=== PATIENT | female | born 1990 | race American Indian/Alaskan Native ===

== ENCOUNTER 2017-04-30 13:44 | Inpatient (IN) | payer MEDICAID ==
[2017-04-30] MEDS ORDERED: ePHEDrine SULFATE IV PRN (13:59)
[2017-04-30] MEDS ORDERED: BRETHINE IVP PRN (13:59)
[2017-04-30] MEDS ORDERED: BRETHINE SUB-Q PRN (13:59)
[2017-04-30] MEDS ORDERED: MINERAL OIL PO PRN (13:59)
[2017-04-30] MEDS ORDERED: PITOCin/NS 20 UNIT/1000ML DRIP 20 UNITS/1,000 ML BAG IV SCH (14:00)
[2017-04-30] MEDS ORDERED: XYLOCAINE 2% INFILTRATI ONE (14:18)
[2017-04-30 14:50] LABS: Hematocrit 40.2 % (30.3-42.9); Hemoglobin 13.5 gm/dl (10.1-14.3); Mean Corpuscular HGB Conc 34 % (30-34); Platelet Count 223 K/mm3 (140-440); Red Blood Count 5.84 M/mm3 (3.65-5.03); Red Cell Distribution Width 14.1 % (13.2-15.2); White Blood Count 7.3 K/mm3 (4.5-11.0)
[2017-04-30 15:02] LABS: Mean Corpuscular Hemoglobin 23 pg (28-32); Mean Corpuscular Volume 69 fl (79-97)
--- NOTE | 2017-04-30 15:53 | History and Physical Report ---
History of Present Illness Date of examination: 04/30/17 Date of admission: 04/30/17 13:44 Chief complaint: Sent from the office for IOL due to nonreactive NST History of present illness: Here for IOL. She had a scheduled for IOL for postdates today but canceled because she did not want to be induced. She was seen at the clinic today for NST which was nonreactive. She report positive uterine contractions & movements. She denies vaginal bleeding. She has a h/o heart murmur. Care co- managed with [facility] Normal ECHO. Holter benign PVCs. She was given a prescription for Metoprolol 25mg PO BID which she never took due to concerns it might hurt the baby despite being told it was ok. Her is complicated by anemia and she is on iron therapy. She admits to marijuana use for management of nausea/vimiting this . 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) Family/Genetic History: none Social history: single - Obstetrical History Expected Date of Delivery: 04/21/17 Actual Gestation: 41 Week(s) 2 Day(s) : 1 Para: 0 Hx # Term Pregnancies: 0 Number of Pregnancies: 0 Spontaneous Abortions: 0 Induced : 0 Number of Living Children: 0 Medications and Allergies Allergies Allergy/AdvReac Type Severity Reaction Status Date / Time No Known Allergies Allergy Verified 03/13/15 23:46 Home Medications Medication Instructions Recorded Confirmed Last Taken Type Iron 1 tab PO QDAY 04/30/17 04/30/17 04/30/17 09:00 History 1 Vit No.129/Iron/Folic 1 tab PO QDAY 04/30/17 04/30/17 04/29/17 12:00 History [ One Daily Tablet] 1 Active Meds: Active Medications Butorphanol Tartrate (Stadol) 2 mg IV Q2H PRN PRN Reason: Pain , Severe (7-10) Ephedrine Sulfate (Ephedrine Sulfate) 10 mg IV Q2M PRN PRN Reason: Hypotension Lactated Ringer's (Lactated Ringers) 1,000 mls @ 125 mls/hr IV DIRECT SHELLY Oxytocin/Sodium Chloride (Pitocin/Ns 20 Unit/1000ml Drip) 20 units in 1,000 mls @ 125 mls/hr IV DIRECT SHELLY Oxytocin/Sodium Chloride (Pitocin/Ns 30 Unit/500ml) 30 units in 500 mls @ 0 mls /hr IV TITR SHELLY; Per Protocol PRN Reason: Protocol Oxytocin/Sodium Chloride (Pitocin/Ns 30 Unit/500ml) 30 units in 500 mls @ 1 mls /hr IV TITR SHELLY; 1 MILLIUNITS/MIN PRN Reason: Protocol Mineral Oil (Mineral Oil) 30 ml PO QHS PRN PRN Reason: Constipation Terbutaline Sulfate (Brethine) 0.25 mg SUB-Q ONCE PRN PRN Reason: Hyperstimulation/Hypertonicity Terbutaline Sulfate (Brethine) 0.25 mg IVP ONCE PRN PRN Reason: Hyperstimulation/Hypertonicity Review of Systems All systems: negative - Vital Signs Vital signs: Vital Signs Pulse BP 45 L 108/61 04/30/17 14:20 04/30/17 14:20 Temp Pulse Resp BP Pulse Ox 97.2 F L 42 L 18 110/64 04/30/17 15:03 04/30/17 15:20 04/30/17 15:03 04/30/17 15:20 - Physical Exam Breasts: Positive: deferred Cardiovascular: Regular rate, Normal S1, Normal S2, No murmurs Lungs: Positive: Clear to auscultation, Normal air movement Abdomen: Positive: normal appearance, soft Genitourinary (Female): Positive: normal external genitalia, normal perenium Vulva: both: normal Vagina: Positive: normal moisture Uterus: Positive: normal size, normal contour Anus/Rectum: Positive: normal perianal skin Extremities: Positive: normal Deep Tendon Reflex Grade: Normal +2 - Obstetrical FHR: category 2 FHR comments: baseline 140, moderate variability, + accels, occ late decels Uterine Contraction Monitor Mode: External Cervical Dilatation: 3 Cervical Effacement Percentage: 60 station: -3 Uterine Contraction Frequency (min): 3-6 Uterine Contraction Duration: 50-100+ Results Result Diagrams: 04/30/17 14:07 Abnormal lab results 04/30/17 Range/Units 14:07 RBC 5.84 H (3.65-5.03) M/mm3 MCV 69 L (79-97) fl MCH 23 L (28-32) pg All other labs normal. Assessment and Plan A: 26yo G 1 P 0 0 0 0 @ 41 wks 2 days Postdates Category II FHR Latent Labor GBS negative P: Admit to L&D for IOL If no cervical change in 2 hrs will start Pitocin Anticipate vaginal delivery
[2017-04-30] MEDS ORDERED: PITOCin/NS 30 UNIT/500ML 30 UNITS/500 ML BAG IV SCH ×2 (16:00)
[2017-04-30] MEDS: LACTATED RINGERS 1,000 ML IV SCH ×2 (16:00→18:59)
[2017-04-30 16:16] LABS: Urine Drugs of Abuse Note Disclamer
[2017-05-01] MEDS: STADOL IV PRN ×2 (00:22→05:29)
[2017-05-01] MEDS: LACTATED RINGERS 1,000 ML IV SCH ×4 (00:40→16:33)
--- NOTE | 2017-05-01 08:50 | Progress Note ---
Assessment and Plan - Patient Problems (1) 41 weeks gestation of Current Visit: Yes Status: Acute (2) Non-reassuring electronic monitoring tracing Current Visit: Yes Status: Acute Plan to address problem: I discussed delivery via C/section with the patient. Risks, benefits of the procedure were discussed in detail with the patient which included but not limited to the risks of infection, hemorrhage requiring blood transfusion, injury to the bowel, bladder and blood vessels. She expressed understanding, her questions were answered, she gave her informed consent. Anesthesia and Peds were notified. Pt is NPO. Dudley, IV bolus. (3) Post-dates Current Visit: Yes Status: Acute Subjective - Subjective Date of service: 05/01/17 Principal diagnosis: Active labor, non-reassuring tracing Interval history: Patient was admitted yesterday for non-reassuring tracing. On admission, the tracing was CAT 1 and she was pranav irregularly. Her contractions spaced apart. Her labor was augmented with pitocin. She had been pranav regularly and developed decelerations again. Pitocin was discontinued. She ruptured spontaneously with thick meconium. This AM, her cervix is 4-5 cm/90%/-2. FHT CAT2 with occasional variables. Objective - Vital Signs Vital Signs: Vital Signs - 12hr 04/30/17 04/30/17 04/30/17 20:46 20:51 20:52 Temperature Pulse Rate 53 L 42 L 39 L Respiratory Rate Blood Pressure 94/52 Blood Pressure [Left] O2 Sat by Pulse 100 100 Oximetry 04/30/17 04/30/17 04/30/17 20:56 21:01 21:16 Temperature Pulse Rate 40 L 41 L 40 L Respiratory Rate Blood Pressure Blood Pressure [Left] O2 Sat by Pulse 100 100 97 Oximetry 04/30/17 04/30/17 04/30/17 21:21 21:22 21:27 Temperature Pulse Rate 41 L 40 L 41 L Respiratory Rate Blood Pressure 88/54 Blood Pressure [Left] O2 Sat by Pulse 98 98 Oximetry 04/30/17 04/30/17 04/30/17 21:32 21:37 21:42 Temperature Pulse Rate 44 L 40 L 41 L Respiratory Rate Blood Pressure Blood Pressure [Left] O2 Sat by Pulse 99 99 99 Oximetry 04/30/17 04/30/17 04/30/17 21:47 21:52 21:57 Temperature Pulse Rate 40 L 39 L 95 H Respiratory Rate Blood Pressure 93/56 Blood Pressure [Left] O2 Sat by Pulse 99 99 97 Oximetry 04/30/17 04/30/17 04/30/17 22:02 22:07 22:12 Temperature Pulse Rate 41 L 42 L 39 L Respiratory Rate Blood Pressure Blood Pressure [Left] O2 Sat by Pulse 99 98 97 Oximetry 05/01/17 05/01/17 05/01/17 00:07 00:08 00:12 Temperature Pulse Rate 46 L 43 L 42 L Respiratory Rate Blood Pressure 104/55 Blood Pressure [Left] O2 Sat by Pulse 100 100 Oximetry 05/01/17 05/01/17 05/01/17 00:17 00:20 00:22 Temperature Pulse Rate 44 L 44 L 43 L Respiratory 14 Rate Blood Pressure 95/51 Blood Pressure [Left] O2 Sat by Pulse 100 100 Oximetry 05/01/17 05/01/17 05/01/17 00:27 00:32 00:37 Temperature Pulse Rate 45 L 45 L 44 L Respiratory Rate Blood Pressure Blood Pressure [Left] O2 Sat by Pulse 100 100 100 Oximetry 05/01/17 05/01/17 05/01/17 00:42 00:47 00:50 Temperature Pulse Rate 43 L 47 L 44 L Respiratory Rate Blood Pressure 91/50 Blood Pressure [Left] O2 Sat by Pulse 100 100 Oximetry 05/01/17 05/01/17 05/01/17 00:52 00:57 01:02 Temperature Pulse Rate 45 L 43 L 43 L Respiratory Rate Blood Pressure Blood Pressure [Left] O2 Sat by Pulse 100 100 100 Oximetry 05/01/17 05/01/17 05/01/17 01:04 01:07 01:12 Temperature Pulse Rate 41 L 44 L 43 L Respiratory Rate Blood Pressure 107/58 Blood Pressure [Left] O2 Sat by Pulse 100 100 Oximetry 05/01/17 05/01/17 05/01/17 01:17 01:21 01:22 Temperature Pulse Rate 41 L 43 L 43 L Respiratory Rate Blood Pressure 101/54 Blood Pressure [Left] O2 Sat by Pulse 100 100 Oximetry 05/01/17 05/01/17 05/01/17 01:27 01:32 01:37 Temperature Pulse Rate 45 L 45 L 46 L Respiratory Rate Blood Pressure Blood Pressure [Left] O2 Sat by Pulse 100 100 100 Oximetry 05/01/17 05/01/17 05/01/17 01:42 01:49 01:53 Temperature Pulse Rate 49 L 48 L 45 L Respiratory Rate Blood Pressure 103/56 Blood Pressure [Left] O2 Sat by Pulse 100 96 Oximetry 05/01/17 05/01/17 05/01/17 01:54 01:59 02:04 Temperature Pulse Rate 49 L 49 L 47 L Respiratory Rate Blood Pressure Blood Pressure [Left] O2 Sat by Pulse 98 99 98 Oximetry 05/01/17 05/01/17 05/01/17 02:09 02:14 02:19 Temperature Pulse Rate 46 L 47 L 46 L Respiratory Rate Blood Pressure Blood Pressure [Left] O2 Sat by Pulse 98 99 99 Oximetry 05/01/17 05/01/17 05/01/17 02:20 02:24 02:29 Temperature Pulse Rate 46 L 48 L 50 L Respiratory Rate Blood Pressure 96/53 Blood Pressure [Left] O2 Sat by Pulse 100 100 Oximetry 05/01/17 05/01/17 05/01/17 02:34 02:35 02:39 Temperature Pulse Rate 47 L 49 L 46 L Respiratory Rate Blood Pressure Blood Pressure [Left] O2 Sat by Pulse 98 93 100 Oximetry 05/01/17 05/01/17 05/01/17 02:44 02:49 02:50 Temperature Pulse Rate 47 L 52 L 42 L Respiratory Rate Blood Pressure 106/60 Blood Pressure [Left] O2 Sat by Pulse 100 100 Oximetry 05/01/17 05/01/17 05/01/17 02:54 02:59 03:04 Temperature Pulse Rate 45 L 46 L 46 L Respiratory Rate Blood Pressure Blood Pressure [Left] O2 Sat by Pulse 100 100 100 Oximetry 05/01/17 05/01/17 05/01/17 03:09 03:14 03:19 Temperature Pulse Rate 43 L 46 L 53 L Respiratory Rate Blood Pressure Blood Pressure [Left] O2 Sat by Pulse 100 100 100 Oximetry 05/01/17 05/01/17 05/01/17 03:21 03:24 03:29 Temperature Pulse Rate 45 L 49 L 50 L Respiratory Rate Blood Pressure 148/102 Blood Pressure [Left] O2 Sat by Pulse 100 100 Oximetry 05/01/17 05/01/17 05/01/17 03:34 03:44 05:00 Temperature Pulse Rate 45 L 45 L 54 L Respiratory Rate Blood Pressure Blood Pressure [Left] O2 Sat by Pulse 100 98 97 Oximetry 05/01/17 05/01/17 05/01/17 05:01 05:06 05:12 Temperature Pulse Rate 47 L 39 L 39 L Respiratory Rate Blood Pressure 107/57 Blood Pressure [Left] O2 Sat by Pulse 0 L 0 L Oximetry 05/01/17 05/01/17 05/01/17 05:19 05:20 05:25 Temperature Pulse Rate 46 L 73 Respiratory Rate Blood Pressure 103/67 Blood Pressure [Left] O2 Sat by Pulse 82 L 96 95 Oximetry 05/01/17 05/01/17 05/01/17 05:30 05:32 05:35 Temperature Pulse Rate 51 L 47 L 70 Respiratory Rate Blood Pressure Blood Pressure [Left] O2 Sat by Pulse 99 92 96 Oximetry 05/01/17 05/01/17 05/01/17 05:39 05:40 05:44 Temperature Pulse Rate 74 74 71 Respiratory Rate Blood Pressure Blood Pressure [Left] O2 Sat by Pulse 94 94 94 Oximetry 05/01/17 05/01/17 05/01/17 05:45 05:50 05:55 Temperature Pulse Rate 74 67 77 Respiratory Rate Blood Pressure 101/64 Blood Pressure [Left] O2 Sat by Pulse 95 94 94 Oximetry 05/01/17 05/01/17 05/01/17 06:00 06:05 06:07 Temperature Pulse Rate 73 64 73 Respiratory Rate Blood Pressure Blood Pressure [Left] O2 Sat by Pulse 94 95 94 Oximetry 05/01/17 05/01/17 05/01/17 06:10 06:14 06:15 Temperature Pulse Rate 66 74 53 L Respiratory Rate Blood Pressure Blood Pressure [Left] O2 Sat by Pulse 93 94 95 Oximetry 05/01/17 05/01/17 05/01/17 06:20 06:25 06:30 Temperature Pulse Rate 66 57 L 48 L Respiratory Rate Blood Pressure 108/70 Blood Pressure [Left] O2 Sat by Pulse 95 96 98 Oximetry 05/01/17 05/01/17 05/01/17 06:35 06:40 06:45 Temperature Pulse Rate 54 L 56 L 42 L Respiratory Rate Blood Pressure Blood Pressure [Left] O2 Sat by Pulse 99 99 99 Oximetry 05/01/17 05/01/17 05/01/17 06:50 06:55 07:00 Temperature Pulse Rate 69 79 76 Respiratory Rate Blood Pressure 114/70 Blood Pressure [Left] O2 Sat by Pulse 99 98 98 Oximetry 05/01/17 05/01/17 05/01/17 07:05 07:08 07:10 Temperature 96.8 F L Pulse Rate 77 56 L 54 L Respiratory 18 Rate Blood Pressure Blood Pressure 101/64 [Left] O2 Sat by Pulse 98 98 98 Oximetry 05/01/17 05/01/17 05/01/17 07:13 07:15 07:20 Temperature Pulse Rate 88 75 74 Respiratory Rate Blood Pressure 101/64 112/68 Blood Pressure [Left] O2 Sat by Pulse 99 99 Oximetry 05/01/17 05/01/17 05/01/17 07:25 07:30 07:35 Temperature Pulse Rate 74 74 74 Respiratory Rate Blood Pressure Blood Pressure [Left] O2 Sat by Pulse 92 99 99 Oximetry 05/01/17 05/01/17 05/01/17 07:40 07:45 07:50 Temperature Pulse Rate 70 77 71 Respiratory Rate Blood Pressure 96/62 Blood Pressure [Left] O2 Sat by Pulse 99 99 99 Oximetry 05/01/17 05/01/17 05/01/17 07:55 08:00 08:05 Temperature Pulse Rate 69 73 82 Respiratory Rate Blood Pressure Blood Pressure [Left] O2 Sat by Pulse 100 97 99 Oximetry 05/01/17 05/01/17 05/01/17 08:10 08:15 08:20 Temperature Pulse Rate 75 63 72 Respiratory Rate Blood Pressure Blood Pressure [Left] O2 Sat by Pulse 98 100 100 Oximetry 05/01/17 05/01/17 05/01/17 08:25 08:30 08:34 Temperature Pulse Rate 78 86 95 H Respiratory Rate Blood Pressure Blood Pressure [Left] O2 Sat by Pulse 99 98 83 L Oximetry 05/01/17 05/01/17 08:35 08:40 Temperature Pulse Rate 71 59 L Respiratory Rate Blood Pressure Blood Pressure [Left] O2 Sat by Pulse 83 L 99 Oximetry - Exam Cardiovascular: Normal S1, Normal S2 Lungs: Clear to auscultation Vulva: both: normal FHR: category 2 Uterine Contraction Monitor Mode: External Cervical Dilatation: 4 Cervical Effacement Percentage: 80 station: -2 Uterine Contraction Pattern: Irregular Deep Tendon Reflex Grade: Normal +2 - Labs Labs: Abnormal Labs 04/30/17 14:07 RBC 5.84 H MCV 69 L MCH 23 L Laboratory Results - last 24 hr 04/30/17 04/30/17 04/30/17 14:07 14:07 15:19 WBC 7.3 RBC 5.84 H Hgb 13.5 Hct 40.2 MCV 69 L MCH 23 L MCHC 34 RDW 14.1 Plt Count 223 Urine Opiates Screen Presumptive negative Urine Methadone Screen Presumptive negative Ur Barbiturates Screen Presumptive negative Ur Phencyclidine Scrn Presumptive negative Ur Amphetamines Screen Presumptive negative U Benzodiazepines Scrn Presumptive negative Urine Cocaine Screen Presumptive negative U Marijuana (THC) Screen Presumptive positive Drugs of Abuse Note Disclamer Blood Type O POSITIVE Antibody Screen Negative
[2017-05-01] MEDS ORDERED: BICITRA PO ONE (09:00)
[2017-05-01] MEDS ORDERED: PEPCID IV ONE (09:00)
[2017-05-01] MEDS ORDERED: REGLAN IV ONE (09:00)
[2017-05-01] MEDS ORDERED: ANCEF/STERILE WATER 2 GM/20 ML 2 GM/20 ML SYRINGE IV NR (09:00)
[2017-05-01] MEDS ORDERED: MORPHINE ONE (09:10)
[2017-05-01] MEDS ORDERED: ANCEF/STERILE WATER 2 GM/20 ML IV ONE (09:26)
[2017-05-01] MEDS ORDERED: WATER FOR IRRIG STERILE IR ONE (09:34)
[2017-05-01] MEDS ORDERED: NACL 0.9% IR ONE (09:34)
[2017-05-01] MEDS: PITOCin/NS 20 UNIT/1000ML DRIP 20 UNITS/1,000 ML BAG IV SCH ×2 (09:48→10:25)
[2017-05-01] MEDS ORDERED: NACL 0.9% 1000 ML 1,000 ML ONE (10:21)
[2017-05-01] MEDS ORDERED: NEO SYNEPHRINE/NS Syringe(OR USE) IV ONE (10:30)
--- NOTE | 2017-05-01 10:41 | Anesthesia Day of Surgery ---
Anesthesia Day of Surgery - Day of Surgery Patient Examined: Yes Patient H&P Reviewed: Yes Patient is NPO: Yes
--- NOTE | 2017-05-01 10:41 | Anesthesia Consultation ---
Anesthesia Consult and Med Hx Date of service: 05/01/17 - Airway Anesthetic Teeth Evaluation: Good ROM Head & Neck: Adequate Mental/Hyoid Distance: Adequate Mallampati Class: Class II Intubation Access Assessment: Probably Good - Pre-Operative Health Status ASA Pre-Surgery Classification: ASA2 Proposed Anesthetic Plan: Epidural, Spinal - Pulmonary Hx Asthma: No COPD: No Hx Pneumonia: No - Cardiovascular System Hx Hypertension: No Hx Cardia Arrhythmia: Yes (skipped heart beats) Hx Heart Murmur: Yes - Central Nervous System Hx Seizures: No Hx Psychiatric Problems: No - Endocrine Hx Renal Disease: No Hx End Stage Renal Disease: No Hx Hypothyroidism: No - Hematic Hx Sickle Cell Disease: No - Other Systems Hx Alcohol Use: No
[2017-05-01] MEDS ORDERED: TYLENOL PO PRN (11:00)
[2017-05-01] MEDS ORDERED: SODIUM CHLORIDE FLUSH SYRINGE 10 ML IV NR (11:00)
[2017-05-01] MEDS ORDERED: ZOFRAN IV PRN ×2 (11:00)
[2017-05-01] MEDS ORDERED: MORPHINE IV PRN (11:00)
[2017-05-01] MEDS ORDERED: MYLICON PO PRN (11:00)
[2017-05-01] MEDS ORDERED: BENADRYL IV PRN (11:00)
[2017-05-01] MEDS ORDERED: NARCAN 0.4 MG/1 ML IV PRN ×2 (11:00)
[2017-05-01] MEDS ORDERED: TUCKS PAD TP PRN (11:00)
[2017-05-01] MEDS ORDERED: TORADOL IV PRN (11:00)
[2017-05-01] MEDS ORDERED: LANSINOH TP PRN (11:00)
[2017-05-01] MEDS ORDERED: PHENERGAN PR PRN (11:00)
[2017-05-01] MEDS ORDERED: SODIUM CHLORIDE FLUSH SYRINGE 10 ML IV PRN (11:00)
--- NOTE | 2017-05-01 11:03 | Operative Report ---
Operative Report Operative Report: Pre-operative diagnosis: 1. SIUP at 41 weeks+ gestation in active labor. 2. Nonreassuring heart tracing. 3. Meconium amniotic fluid. Post operative diagnosis: Same as preoperative diagnosis. Procedure: Primary low transverse section. Surgeon: Dr. Nino House Wirer Helper: None Anesthesia: Spinal IVF: 2800 mL of RL EBL: 500 mL Urine: 200 cc clear. Complications: none. Intraoperative findings: Male found in an LINDA position, delivered at 9:46 AM, Apgars 9 at 1 minute and 9 at 5 minutes, weight 6 lbs. 3 oz. Procedure details: The risks, benefits, and alternatives of the procedure were discussed in detail with the patient which included but not limited to the risk of infection, hemorrhage requiring blood transfusion, injury to bowel bladder and blood vessels. The patient expressed understanding, her questions were answered, and she gave informed consent. The patient was taken to the operating room with an IV fluids infusing ringer's lactate. In the operating room, she was placed in a sitting position and given spinal anesthesia. Then, she was placed in the dorsal supine position with a leftward tilt. A Dudley catheter and Venodyne boots were placed. The abdomen was washed and she was prepared and draped in the usual sterile fashion. After confirming adequate spinal anesthesia, a Pfannenstiel skin incision was made in the lower abdomen about 2 cm above the pubic symphysis using the scalpel. This incision was carried down to the underlying fascia using the Bovie. The fascia was opened bilaterally in a curvilinear fashion using the Bovie. Straight Kocker clamps were used to grasp the upper edge of the fascia from which the underlying rectus abdominis muscle was dissected off using the Bovie. A similar procedure was done with the lower edge of the fascia to dissect the underlying rectus abdominis muscle. The muscle was bluntly from the midline by pulling. The parietal peritoneum was entered sharply using Metzenbaum scissors. A quick survey of the anatomy revealed normal uterus, ovaries, and fallopian tubes bilaterally. A bladder flap was created. Hector O retractor was placed at the incision for proper visualization. Then, a low transverse incision was made in the lower uterine segment using the scalpel and extended bilaterally in a curvilinear fashion using bandage seizures. There was a scant amount of meconium amniotic fluid as the membranes have been ruptured during labor. The infant was found in an LINDA position, the head was delivered atraumatically followed by the delivery of the shoulders and the rest of the body atraumatically. Delivery time was 9:46 AM. The cord was clamped 2 and cut and the was handed off to the awaiting manufacturing engineering director. Cord blood was collected. The placenta was delivered manually and was completely three-vessel cord. The infant was a male, Apgars were 9 at 1 minute and 9 at 5 minutes, weight 6 lbs. 3 oz. The uterine cavity was cleaned of clots and debris using dry lap sponges. The uterine incision was repaired in a running locked fashion using 0 Vicryl sutures. A second layer of imbrication was placed. The gutters were cleaned of clots and debris using dry lap sponges. The fascia was closed in a running fashion using 0 Vicryl sutures. The skin was closed with giana. Sterile dressing was placed. The count of laps, sponges, and instruments were correct 2. The patient tolerated the procedure well. She was taken to the recovery room in a stable condition.
--- NOTE | 2017-05-01 16:02 | Consultation ---
History of Present Illness Consult date: 05/01/17 Consult reason: arrhythmia History of present illness: This is a 26yr old woman with a history of palpitations. An echocardiogram 6 months ago showed a normal EF 55%. She also wore a holter monitor that showed frequent PVCs and ventricular bigeminy. Patient was admitted and is status post section today. She denies chest pain, shortness of breath and palpitations post operatively. Cardiac consultation was requested. Past History Social history: single Medications and Allergies Allergies Allergy/AdvReac Type Severity Reaction Status Date / Time No Known Allergies Allergy Verified 03/13/15 23:46 Home Medications Medication Instructions Recorded Confirmed Last Taken Type Iron 1 tab PO QDAY 04/30/17 04/30/17 04/30/17 09:00 History 1 Vit No.129/Iron/Folic 1 tab PO QDAY 04/30/17 04/30/17 04/29/17 12:00 History [ One Daily Tablet] 1 Active Meds: Active Medications Acetaminophen (Tylenol) 650 mg PO Q4H PRN PRN Reason: Fever >100.5/ALONZO Diphenhydramine HCl (Benadryl) 12.5 mg IV Q2H PRN PRN Reason: Itching Lactated Ringer's (Lactated Ringers) 1,000 mls @ 125 mls/hr IV DIRECT SHELLY Last Admin: 05/01/17 08:54 Dose: 125 mls/hr Oxytocin/Sodium Chloride (Pitocin/Ns 20 Unit/1000ml Drip) 20 units in 1,000 mls @ 250 mls/hr IV DIRECT SHELLY Last Admin: 05/01/17 10:25 Dose: 250 mls/hr Ibuprofen (Motrin) 800 mg PO Q6H PRN PRN Reason: Pain, Mild (1-3) Ketorolac Tromethamine (Toradol) 30 mg IV Q6H PRN PRN Reason: Pain, Moderate (4-6) Stop: 05/06/17 10:59 Last Admin: 05/01/17 13:05 Dose: 30 mg Morphine Sulfate (Morphine) 4 mg IV Q4H PRN PRN Reason: Pain , Severe (7-10) Multi-Ingredient Ointment (Lansinoh) 1 applic TP PRN PRN PRN Reason: dryness/cracking Naloxone HCl (Narcan 0.4 Mg/1 Ml) 0.1 mg IV Q2MIN PRN PRN Reason: Res Rate </= 8 or 02 SAT < 92% Naloxone HCl (Narcan 0.4 Mg/1 Ml) 0.2 mg IV Q2MIN PRN PRN Reason: Res Rate </= 8 or 02 SAT < 92% Ondansetron HCl (Zofran) 4 mg IV Q8H PRN PRN Reason: Nausea And Vomiting Last Admin: 05/01/17 13:10 Dose: 4 mg Oxycodone/Acetaminophen (Percocet 5/325) 1 tab PO Q6H PRN PRN Reason: Pain, Moderate (4-6) Promethazine HCl (Phenergan) 25 mg MS Q6H PRN PRN Reason: Nausea And Vomiting Senna (Senokot) 17.2 mg PO QHS PRN PRN Reason: Constipation Simethicone (Mylicon) 80 mg PO Q6H PRN PRN Reason: Gas pain Sodium Chloride (Sodium Chloride Flush Syringe 10 Ml) 10 ml IV PRN PRN PRN Reason: flush Witch Giulia/Glycerin (Tucks Pad) 1 each TP PRN PRN PRN Reason: Hemorrhoids/cleansing/soothing Physical Examination Vital Signs Pulse BP 45 L 108/61 04/30/17 14:20 04/30/17 14:20 General appearance: no acute distress HEENT: Positive: PERRL Cardiac: Positive: Reg Rate and Rhythm Results 04/30/17 14:07 Assessment and Plan s/p section Hx of intermittent palpitations EF 55% on echo 08/2016 Plan: We will get an 12 lead ECG. Otherwise, conservative cardiac management.
[2017-05-01 23:03] LABS: Hematocrit 31.2 % (30.3-42.9); Hemoglobin 10.2 gm/dl (10.1-14.3)
[2017-05-02] MEDS: PERCOCET 5/325 PO PRN ×3 (05:55→20:42)
--- NOTE | 2017-05-02 11:34 | Progress Note ---
Assessment and Plan A: POD #1 Stable heart Murmur P: Follow routine PostOp Orders Consult Dr. Nino to Review EKG on chart Subjective - Subjective Date of service: 05/02/17 Principal diagnosis: Active labor, non-reassuring tracing Patient reports: appetite normal, voiding normally, flatus [place]: doing well Objective - Vital Signs Latest vital signs: Vital Signs Temp Pulse Resp BP BP Pulse Ox 05/02/17 08:28 98.4 F 54 L 18 107/42 97 05/02/17 04:00 98.6 F 69 16 111/71 05/02/17 00:00 98.6 F 69 18 111/68 05/01/17 20:00 98.6 F 77 16 97/76 05/01/17 16:41 98.0 F 75 22 115/78 98 05/01/17 12:04 97.2 F L 63 20 118/78 100 05/01/17 11:55 97.4 F L 56 L 16 114/69 Intake and Output 05/01/17 05/02/17 05/02/17 22:59 06:59 14:59 Intake Total 2286.25 Output Total 150 2000 Balance 2136.25 -2000 Intake: IV 956.25 Lactated Ringers 1,000 ml 956.25 @ 125 mls/hr IV DIRECT SHELLY Rx#:[id number] Oral 730 Intake, Free Water 600 Output: Urine 150 2000 Indwelling Catheter 150 Void 2000 Other: Total, Intake Amount 250 Total, Output Amount 150 600 # Voids Void 1 - Exam Breasts: Present: normal Cardiovascular: Present: Regular rate Lungs: Present: Clear to auscultation, Normal air movement Abdomen: Present: normal appearance, soft, normal bowel sounds Uterus: Present: normal, firm, fundal height below umbilicus Extremities: Present: normal Incision: Present: normal, dry, dressed
[2017-05-02] MEDS: MOTRIN PO PRN ×2 (12:06→20:42)
--- NOTE | 2017-05-02 14:27 | Progress Note ---
Subjective Date of service: 05/02/17 Principal diagnosis: Active labor, non-reassuring tracing Interval history: 1st POD after Patient is in the bed, comfortable. Pain is well controlled with pain meds. Ambulated well. No residual neurological deficit. No anesthesia complications Objective - Constitutional Vitals: Vital Signs - 12hr 05/02/17 05/02/17 04:00 08:28 Temperature 98.6 F 98.4 F Pulse Rate 69 54 L Respiratory 16 18 Rate Blood Pressure 107/42 Blood Pressure 111/71 [Left] O2 Sat by Pulse 97 Oximetry - Labs CBC & Chem 7: 05/01/17 22:52
--- NOTE | 2017-05-02 14:55 | Progress Note ---
Assessment and Plan - Patient Problems (1) 41 weeks gestation of Current Visit: Yes Status: Acute (2) Post-dates Current Visit: Yes Status: Acute (3) delivery delivered Current Visit: Yes Status: Acute Plan to address problem: Patient is doing well. Heart PVCs. copy reader saw patient. Holter monitoring ordered. She has appointment to be seen in 2 weeks. may discharge her home on POD#3 if no post op contraindications. (4) PVC (premature ventricular contraction) Current Visit: Yes Status: Acute Plan to address problem: Cardiology consult done. Holter monitoring. F/U with cardio after discharge. Subjective - Subjective Date of service: 05/02/17 Principal diagnosis: Active labor, non-reassuring tracing Interval history: Patient is S/P primary C/section for NRFHT, POD #1. She is ambulating and tolerating regular diet well. She has hsitory of PVCs and had cardio consult was done yesterday. Patient did have an echocardiogram 6 months ago which was normal. She denies any palpitation, chest pain, or SOB, Objective - Vital Signs Latest vital signs: Vital Signs Temp Pulse Resp BP BP Pulse Ox 05/02/17 08:28 98.4 F 54 L 18 107/42 97 05/02/17 04:00 98.6 F 69 16 111/71 05/02/17 00:00 98.6 F 69 18 111/68 05/01/17 20:00 98.6 F 77 16 97/76 05/01/17 16:41 98.0 F 75 22 115/78 98 Intake and Output 05/01/17 05/02/17 05/02/17 23:59 07:59 15:59 Intake Total 2286.25 Output Total 150 1999 Balance 2136.25 -2000 Intake: IV 956.25 Lactated Ringers 1,000 ml 956.25 @ 125 mls/hr IV DIRECT SHELLY Rx#:[id number] Oral 730 Intake, Free Water 600 Output: Urine 150 1999 Indwelling Catheter 150 Void 2000 Other: Total, Intake Amount 250 Total, Output Amount 150 600 # Voids Void 1 - Exam Cardiovascular: Present: Normal S1, Normal S2 Lungs: Present: Clear to auscultation Deep Tendon Reflex Grade: Normal +2
[2017-05-02] MEDS ORDERED: SENOKOT PO PRN (22:00)
[2017-05-03] MEDS: PERCOCET 5/325 PO PRN ×3 (06:29→22:15)
[2017-05-03] MEDS: MOTRIN PO PRN ×3 (06:29→22:14)
--- NOTE | 2017-05-03 10:32 | Progress Note ---
Assessment and Plan A: POD #2 Heart PVC P: Follow Routine PostOp Orders D/C home in the AM RTO in One Week for Post Op Exam Cardiology Consult per Mechanical Striper Recommendation after discharge Subjective - Subjective Date of service: 05/03/17 Principal diagnosis: Active labor, non-reassuring tracing Patient reports: appetite normal, voiding normally, pain well controlled, flatus , ambulating normally : doing well Objective - Vital Signs Latest vital signs: Vital Signs Temp Pulse Resp BP 05/03/17 00:00 98.6 F 66 16 101/77 05/02/17 17:35 98.2 F 78 18 108/63 05/02/17 12:30 98.1 F 78 20 118/78 Intake and Output 05/02/17 05/03/17 05/03/17 22:59 06:59 14:59 Intake Total 240 300 Output Total 500 Balance -260 300 Intake: Oral 240 Intake, Free Water 300 Output: Urine 500 Void 500 Other: Total, Intake Amount 240 Total, Output Amount 500 # Voids Void 3 - Exam Breasts: Present: normal Cardiovascular: Present: Regular rate Lungs: Present: Clear to auscultation, Normal air movement Abdomen: Present: normal appearance, soft, normal bowel sounds Uterus: Present: normal, firm, fundal height below umbilicus Extremities: Present: normal Incision: Present: normal, dry, intact
--- NOTE | 2017-05-03 10:34 | Discharge Summary ---
Providers - Providers Date of Admission: 04/30/17 13:44 Date of discharge: 05/04/17 Attending physician: GOLDEN OSEI MD 04/30/17 18:43 Consult to Cardiology [CONS] Urgent Consulting Provider: KAYLA MEJIA Reason For Exam: IU @ 41wks h/o bradyarrhythmia/heart murmur 05/01/17 13:47 Consult to Case Management [CONS] Routine Services Needed at Discharge: 2Nd Pressman Notified:: bong Phone number called:: [phone] Was contact made?: Yes If yes, spoke with:: bong Time called:: 13:50 Primary care physician: GOLDEN OSEI MD Hospitalization Reason for admission: induction of labor Delivery: Procedure: primary low transverse Episiotomy: none Laceration: none Incision: normal, dry, intact Other procedures: none complications: none Discharge diagnosis: IUP at term delivered baby: male Condition at discharge: Good Disposition: DC-01 TO HOME OR SELFCARE Plan - Provider Discharge Summary Activity: routine, no sex for 6 weeks, no heavy lifting 4 weeks, no strenuous exercise Diet: routine Instructions: routine Additional instructions: [] Smoking cessation referral if applicable(refer to patient education folder for contact #) [] Refer to [facility]'s [facility] Booklet Call your doctor immediately for: * Fever > 100.5 * Heavy vaginal bleeding ( >1 pad per hour) * Severe persistent headache * Shortness of breath * Reddened, hot, painful area to leg or breast * Drainage or odor from incision. * Keep incision clean and dry at all times and follow doctor's instructions regarding bathing/showering - Follow up plan Follow up: GOLDEN OSEI MD [Primary Care Provider] - 7 Days
--- NOTE | 2017-05-03 14:43 | Query-Anemia ---
Aurelio OSEI Date:_05/03/17 Meat Smoker/CDS:Edwige Phone#:_[phone] Exercise your independent professional judgment when responding to this query. Questions asked do not imply a particular answer is desired or expected. We greatly appreciate your clarification on this issue. Clinical Documentation States: 26 year old female was admitted on 04/30/17. Operative Report( Dr Osei on 05/01/17) states" Operative Report: Pre-operative diagnosis: 1. SIUP at 41 weeks+ gestation in active labor. 2. Nonreassuring heart tracing. 3. Meconium amniotic fluid. Procedure: Primary low transverse section. EBL: 500 mL " Clinical Findings Show: 04/30/17 05/01/17 Hgb 13,5 10.2 Hct 40.2 31.2 Etiology: [ ] Anemia due to acute blood loss [ ] Anemia due to chronic blood loss [ ] Anemia secondary to ESRD [ ] Anemia secondary to neoplastic disease [ ] Iron deficiency anemia due to malabsorption [ ] GI Bleed from: [ ] Anemia of chronic disease ,Other: [ ] Precipitous Drop in Hemoglobin [ ] Precipitous Drop in Hematocrit [ ] Other: [ ] Unable to determine [ ] Comment/Explanation: Present on Admission: [ ] Yes (Y) [ ] Clinically undeterminable (W) [ ] No (N) Please also document response in your Progress Notes and/or Discharge Summary and indicate if the condition was present on admission. TOM
[2017-05-04] MEDS: MOTRIN PO PRN ×2 (05:13→11:23)
[2017-05-04] MEDS: PERCOCET 5/325 PO PRN ×2 (05:14→11:23)
[2017-05-04 09:56] VITALS: BP 114/72
== END 2017-05-04 11:26 | disposition home or self-care (01) | DRG 765 ==
LOC: LD 13:44 → OB 05-01 11:55
PROVIDERS: ADMIT Obstetrics & Gynecology; ATTEND Obstetrics & Gynecology
PROC: 10D00Z1 Extraction of Products of Conception, Low, Open Approach (ICD-10-PCS; principal; 2017-05-01)
DX: O77.0 Labor and delivery complicated by meconium in amniotic fluid (principal); O99.42 Diseases of the circulatory system complicating childbirth; Z3A.41 41 weeks gestation of pregnancy; Z37.0 Single live birth; I49.9 Cardiac arrhythmia, unspecified; O76 Abnormality in fetal heart rate and rhythm complicating labor and delivery; O48.0 Post-term pregnancy; D62 Acute posthemorrhagic anemia; O62.8 Other abnormalities of forces of labor
CPT/HCPCS: 36415; 80307; 85014; 85018; 85027; 86592; 86850; 86900; 86901; 93005; 93010; 99211; G0463; J0595; J0690; J1885; J2270; J2370; J2405; J2590; J2765; J7030; J7120

== ENCOUNTER 2019-01-18 21:56 | Emergency (ER) | payer MEDICAID ==
[2019-01-18 22:02] VITALS: BP 114/74
--- NOTE | 2019-01-18 22:05 | Event Note ---
ED Screening Note Date of service: 01/18/19 Time: 22:04 ED Screening Note: 28 y/o female comes in for +preg test with pelvic cramping and vag bleeding. LMP 12/13/18. This initial assessment/diagnostic orders/clinical plan/treatment(s) is/are subject to change based on patients health status, clinical progression and re- assessment by fellow clinical providers in the ED. Further treatment and workup at subsequent clinical providers discretion. Patient/guardian urged not to elope from the ED as their condition may be serious if not clinically assessed and managed. Initial orders include:
--- NOTE | 2019-01-18 23:12 | Ultrasound Report ---
OB ultrasound. 01/18/2019. HISTORY: . Bleeding. FINDINGS: Imaging was performed transabdominally. The uterus measures 8.5 x 4.5 x 4.6 cm. The endomet rial stripe is 9.2 mm. Negative for intrauterine . Right ovary measures 2.4 x 1.3 x 2.2 cm. Left ovary measures 2.2 x 1.4 x 1.9 cm. Both ovaries contain flow. Negative for adnexal mass or fluid. Signer Name: Femi Hinds MD Signed: 01/18/2019 11:07 PM Workstation Name: [id number]
[2019-01-18 23:13] LABS: Basophils # (Auto) 0.1 K/mm3 (0.0-0.1); Basophils % (Auto) 0.7 % (0.0-1.8); Eosinophils # (Auto) 0.1 K/mm3 (0.0-0.4); Eosinophils % (Auto) 1.2 % (0.0-4.3); Hematocrit 35.2 % (30.3-42.9); Hemoglobin 11.6 gm/dl (10.1-14.3); Lymphocytes # (Auto) 4.2 K/mm3 (1.2-5.4); Mean Corpuscular HGB Conc 33 % (30-34); Monocytes # (Auto) 0.8 K/mm3 (0.0-0.8); Monocytes % (Auto) 8.5 % (0.0-7.3); Platelet Count 308 K/mm3 (140-440); Red Blood Count 5.16 M/mm3 (3.65-5.03)
[2019-01-18 23:17] LABS: Mean Corpuscular Volume 68 fl (79-97)
[2019-01-18 23:19] LABS: Bilirubin,Urine NEG (Negative); Blood,Urine LG (Negative); Color,Urine Yellow (Yellow); Mucus,Urine 1+ /HPF; Protein,Urine <15 mg/dL mg/dL (Negative); Urobilinogen,Urine < 2.0 mg/dL (<2.0)
--- NOTE | 2019-01-19 00:15 | Emergency Department Report ---
ED Female HPI - General Chief complaint: Abdominal Pain Stated complaint: VAGINAL BLEEDING/POSS MISCARRIAGE Time Seen by Provider: 01/18/19 22:02 Source: patient Mode of arrival: Ambulatory Limitations: No Limitations - History of Present Illness Initial comments: Patient is a 28-year-old [place]er female who has had some vaginal bleeding which is as heavy as her menses with some intermittent abdominal cramps this also her at the level of her normal menses. Patient's took a test week ago as well as tonight which are both positive. Patient estimates she is approximately 3 weeks by dates. Patient denies any dysuria vaginal discharge or fevers chills cough cold or congestion at this time. - Related Data Home Medications Medication Instructions Recorded Confirmed Last Taken Iron 1 tab PO QDAY 04/30/17 04/30/17 04/30/17 09:00 1 Vit No.129/Iron/Folic 1 tab PO QDAY 04/30/17 04/30/17 04/29/17 12:00 [ One Daily Tablet] 1 Allergies Allergy/AdvReac Type Severity Reaction Status Date / Time No Known Allergies Allergy Verified 03/13/15 23:46 ED Review of Systems ROS: Stated complaint: VAGINAL BLEEDING/POSS MISCARRIAGE Other details as noted in HPI Comment: All other systems reviewed and negative ED Past Medical Hx - Past Medical History Hx Hypertension: No Hx Congestive Heart Failure: No Hx Diabetes: No Hx Deep Vein Thrombosis: No Hx Renal Disease: No Hx Sickle Cell Disease: No Hx Seizures: No Hx Asthma: No Hx COPD: No Hx HIV: No Additional medical history: BRADYCARDIA - Social History Smoking Status: Never Smoker Substance Use Type: None - Medications Home Medications: Home Medications Medication Instructions Recorded Confirmed Last Taken Type Iron 1 tab PO QDAY 04/30/17 04/30/17 04/30/17 09:00 History 1 Vit No.129/Iron/Folic 1 tab PO QDAY 04/30/17 04/30/17 04/29/17 12:00 History [ One Daily Tablet] 1 ED Physical Exam - General Limitations: No Limitations General appearance: alert, in no apparent distress - Head Head exam: Present: atraumatic, normocephalic - Eye Eye exam: Present: normal appearance - ENT ENT exam: Present: mucous membranes moist - Neck Neck exam: Present: normal inspection - Respiratory Respiratory exam: Present: normal lung sounds bilaterally. Absent: respiratory distress, wheezes, rales, rhonchi - Cardiovascular Cardiovascular Exam: Present: regular rate, normal rhythm, normal heart sounds. Absent: systolic murmur, diastolic murmur, rubs, gallop - GI/Abdominal GI/Abdominal exam: Present: soft, normal bowel sounds. Absent: distended, tenderness, guarding, rebound - Extremities Exam Extremities exam: Present: normal inspection - Back Exam Back exam: Present: normal inspection - Neurological Exam Neurological exam: Present: alert, oriented X3 - Psychiatric Psychiatric exam: Present: normal affect, normal mood - Skin Skin exam: Present: warm, dry, intact, normal color. Absent: rash ED Course Vital Signs 01/18/19 22:01 Temperature 98.4 F Pulse Rate 72 Respiratory 18 Rate Blood Pressure 114/74 O2 Sat by Pulse 95 Oximetry ED Medical Decision Making - Lab Data Result diagrams: 01/18/19 22:58 Lab Results 01/18/19 01/18/19 01/18/19 Range/Units 22:41 22:48 22:58 WBC 9.9 (4.5-11.0) K/mm3 RBC 5.16 H (3.65-5.03) M/mm3 Hgb 11.6 (10.1-14.3) gm/dl Hct 35.2 (30.3-42.9) % MCV 68 L (79-97) fl MCH 22 L (28-32) pg MCHC 33 (30-34) % RDW 15.0 (13.2-15.2) % Plt Count 308 (140-440) K/mm3 Lymph % (Auto) 42.0 H (13.4-35.0) % [place] % (Auto) 8.5 H (0.0-7.3) % Eos % (Auto) 1.2 (0.0-4.3) % Baso % (Auto) 0.7 (0.0-1.8) % Lymph # 4.2 (1.2-5.4) K/mm3 [place] # 0.8 (0.0-0.8) K/mm3 Eos # 0.1 (0.0-0.4) K/mm3 Baso # 0.1 (0.0-0.1) K/mm3 Seg Neutrophils % 47.6 (40.0-70.0) % Seg Neutrophils # 4.7 (1.8-7.7) K/mm3 HCG, Quant 58.93 H (0-4) mIU/mL Urine Color Yellow (Yellow) Urine Turbidity Clear (Clear) Urine pH 6.0 (5.0-7.0) Ur Specific [place] 1.016 (1.003-1.030) Urine Protein <15 mg/dl (Negative) mg/dL Urine Glucose (UA) Neg (Negative) mg/dL Urine Ketones Neg (Negative) mg/dL Urine Blood Lg (Negative) Urine Nitrite Neg (Negative) Urine Bilirubin Neg (Negative) Urine Urobilinogen < 2.0 (<2.0) mg/dL Ur Leukocyte Esterase Neg (Negative) Urine WBC (Auto) 5.0 (0.0-6.0) /HPF Urine RBC (Auto) 174.0 (0.0-6.0) /HPF U Epithel Cells (Auto) 1.0 (0-13.0) /HPF Urine Mucus 1+ /HPF O+ blood type on record - Radiology Data [facility] [address] [place] [address] Ultrasound Report Signed Patient: ANDRA JARA MR#: [id number] : 1990 Acct:[id number] Age/Sex: 28 / F ADM Date: 01/18/19 Loc: ED Attending Dr: Ordering Physician: TUSHAR FAY Date of Service: 01/18/19 Procedure(s): US OB <= 14 weeks fetus Accession Number(s): [id number] cc: TUSHAR FAY OB ultrasound. 01/18/2019. HISTORY: . Bleeding. FINDINGS: Imaging was performed transabdominally. The uterus measures 8.5 x 4.5 x 4.6 cm. The endometrial stripe is 9.2 mm. Negative for intrauterine . Right ovary measures 2.4 x 1.3 x 2.2 cm. Left ovary measures 2.2 x 1.4 x 1.9 cm. Both ovaries contain flow. Negative for adnexal mass or fluid. Signer Name: Femi Hinds MD Signed: 01/18/2019 11:07 PM Workstation Name: [id number] Transcribed By: ES Dictated By: eFmi Hinds MD Electronically Authenticated By: Femi Hinds MD Signed Date/Time: 01/18/19 7493 - Medical Decision Making Catalog conversation with the patient regarding all sounded quite values. Since the patient's had a positive test a week ago as well as today a Quant of 58 is very low considering that she is should be approximate 3 weeks by dates. No IUP was found. Patient likely given the patient's bleeding is having a miscarriage and very early . To be 100% confirmatory patient should have a repeat Quant and 2-3 days. Patient will be discharged home with follow- up with her CLAY HOUSE WORKER. Critical care attestation.: If time is entered above; I have spent that time in minutes in the direct care of this critically ill patient, excluding procedure time. ED Disposition Clinical Impression: Threatened miscarriage Disposition: DC-01 TO HOME OR SELFCARE Is pt being admited?: No Does the pt Need Aspirin: No Condition: Stable Instructions: Threatened Miscarriage (ED) Additional Instructions: Please follow up with the provided CLAY HOUSE WORKER or your CLAY HOUSE WORKER if you have seen a certain group in the past. Your beta Quant today was 58. Your likely having a miscarriage. To be 100% confirmatory you will need another beta Quant in 2-3 days Referrals: [facility] [Provider Group] - 3-5 Days Time of Disposition: 00:15
== END 2019-01-19 00:26 | disposition home or self-care (01) ==
LOC: ED 21:56
DX: O20.0 Threatened abortion (principal); Z3A.01 Less than 8 weeks gestation of pregnancy
CPT/HCPCS: 36415; 76801; 81001; 84702; 85025

== ENCOUNTER 2020-10-08 05:20 | Inpatient (IN) | payer MEDICAID ==
--- NOTE | 2020-10-01 12:40 | History and Physical Report ---
History of Present Illness Date of examination: 10/08/20 History of present illness: 29 yo with EDC of 10/12 is for RLTCS on 10/08/20. PT with h/o PVCs and saw Cardiology and [facility] during the . No additional meds needed for it. GBS neg. Mild anemia. Alpha-thal carried and Hgn C trait. No other issues. Past History Past Medical History: arrhythmia Past Surgical History: section (x 1) PIN MAKER History: abnormal PAP smear (ASCUS, HPV pos- repeat pap 6 weeks pp) - Obstetrical History : 3 Para: 1 Spontaneous Abortions: 1 Number of Living Children: 1 Medications and Allergies Allergies Allergy/AdvReac Type Severity Reaction Status Date / Time No Known Allergies Allergy Verified 03/13/15 23:46 Home Medications Medication Instructions Recorded Confirmed Last Taken Type Vit No.129/Iron/Folic 1 tab PO QDAY 04/30/17 10/08/20 1 Day Ago History [ One Daily Tablet] ~10/07/20 Ergocalciferol(Vitamin D2)(Nf) 1 tab PO DAILY 10/08/20 10/08/20 1 Day Ago History [Vitamin D (Nf)] ~10/07/20 Review of Systems All systems: negative (except HPI) - Physical Exam Cardiovascular: Regular rate Lungs: Positive: Clear to auscultation, Normal air movement Abdomen: Positive: normal appearance (gravid), soft. Negative: tenderness Results Result Diagrams: 10/08/20 05:54 All other labs normal. Assessment and Plan - Patient Problems (1) Previous section Current Visit: No Status: Acute Plan to address problem: PT fully consented for RLTCS on 10/08. Patient fully consented for the surgery. Risks, benefits, and alternatives were all discussed with the patient including risk of bleeding, infection, and potential for injury. Patient understands and accepts these risks. Patient agrees to proceed with surgery. All questions were answered.
[2020-10-08] MEDS ORDERED: CARBOPROST TROMETHAMINE 250 MCG/1 ML INJ IM PRN (06:00)
[2020-10-08] MEDS ORDERED: OXYTOCIN 10 UNIT/1 ML INJ IM PRN (06:00)
[2020-10-08] MEDS ORDERED: OXYTOCIN DRIP 30 UNITS/500 ML BAG IV SCH ×3 (06:00→10:00)
[2020-10-08] MEDS ORDERED: METHYLERGONOVINE MALEATE 0.2 MG/ML VIAL IM PRN (06:00)
[2020-10-08] MEDS ORDERED: LACTATED RINGERS 1,000 ML IV SCH ×2 (06:00)
[2020-10-08] MEDS ORDERED: miSOPROStol 200 MCG TAB PR PRN (06:00)
[2020-10-08] MEDS ORDERED: ePHEDrine SULFATE 50 MG/1 ML INJ IV PRN (06:00)
[2020-10-08] MEDS ORDERED: TERBUTALINE 1 MG/1 ML INJ SUB-Q PRN (06:00)
[2020-10-08] MEDS ORDERED: LOPERAMIDE 2 MG CAP PO PRN ×2 (06:00→10:00)
[2020-10-08 06:05] LABS: Hematocrit 31.9 % (30.3-42.9); Hemoglobin 11.3 gm/dl (10.1-14.3); Mean Corpuscular HGB Conc 35 % (30-34); Platelet Count 257 K/mm3 (140-440); Red Blood Count 4.91 M/mm3 (3.65-5.03); Red Cell Distribution Width 15.3 % (13.2-15.2)
[2020-10-08 06:06] LABS: Mean Corpuscular Volume 65 fl (79-97)
[2020-10-08] MEDS ORDERED: FAMOTIDINE 20 MG/2 ML INJ IV ONE (06:30)
[2020-10-08] MEDS ORDERED: METOCLOPRAMIDE 10 MG/2 ML INJ IV ONE (06:30)
[2020-10-08] MEDS ORDERED: BICITRA ORAL LIQD 30ML PO ONE (06:30)
[2020-10-08] MEDS ORDERED: ceFAZolin/STERILE WATER 2 GM/20 ML SYRINGE IV NR (06:30)
[2020-10-08] MEDS ORDERED: PROMETHAZINE 25 MG TAB PO PRN (06:47)
[2020-10-08] MEDS ORDERED: NALOXONE 0.4 MG/1 ML INJ IV PRN ×2 (06:47→10:00)
[2020-10-08] MEDS ORDERED: ONDANSETRON 4 MG/2 ML INJ IV PRN ×2 (06:47→10:00)
[2020-10-08] MEDS ORDERED: NalbUPHINE 10 MG/1 ML INJ IV PRN (06:47)
[2020-10-08] MEDS ORDERED: diphenhydrAMINE 50 MG/ML VIAL IV PRN (06:47)
[2020-10-08] MEDS ORDERED: PROMETHAZINE 25 MG RECT SUPP PR PRN (06:47)
[2020-10-08] MEDS ORDERED: KETOROLAC 30 MG/1 ML INJ ONE (06:57)
[2020-10-08] MEDS ORDERED: ONDANSETRON 4 MG/2 ML INJ ONE ×2 (06:57)
[2020-10-08] MEDS ORDERED: dexAMETHasone 20 MG/5 ML VIAL ONE (06:57)
[2020-10-08] MEDS ORDERED: BUPIVACAINE/PF (0.5%) 5 MG/1 ML 30 ML VIAL INFILTRATI ONE (06:57)
--- NOTE | 2020-10-08 07:43 | Anesthesia Day of Surgery ---
Anesthesia Day of Surgery - Day of Surgery Patient Examined: Yes Patient H&P Reviewed: Yes Patient is NPO: Yes Beta Blockers: No Cardiac Clearance: No Pulmonary Clearance: No Isaac's Test: N/A
--- NOTE | 2020-10-08 07:44 | Anesthesia Consultation ---
Anesthesia Consult and Med Hx Date of service: 10/08/20 - Airway Anesthetic Teeth Evaluation: Good ROM Head & Neck: Adequate Mental/Hyoid Distance: Adequate Mallampati Class: Class II Intubation Access Assessment: Probably Good - Pulmonary Exam CTA: Yes - Cardiac Exam Cardiac Exam: RRR - Pre-Operative Health Status ASA Pre-Surgery Classification: ASA2 Proposed Anesthetic Plan: Spinal Nerve Block: TAP - Pulmonary Hx Smoking: No Hx Asthma: No COPD: No Hx Pneumonia: No Hx Sleep Apnea: No - Cardiovascular System Hx Hypertension: No Hx Heart Attack/AMI: No Hx Angina: No Hx Cardia Arrhythmia: Yes (skipped heart beats) Hx Heart Murmur: Yes - Central Nervous System Hx Seizures: No Hx Psychiatric Problems: No - Gastrointestinal Hx Gastroesophageal Reflux Disease: No - Endocrine Hx Renal Disease: No Hx End Stage Renal Disease: No Hx Liver Disease: No Hx Insulin Dependent Diabetes: No Hx Non-Insulin Dependent Diabetes: No Hx Hypothyroidism: No Hx Hyperthyroidism: No - Hematic Hx Anemia: Yes (THIS ) Hx Sickle Cell Disease: No - Other Systems Hx Alcohol Use: No Hx Obesity: Yes
[2020-10-08] MEDS ORDERED: SODIUM CHLORIDE 0.9% IRR 1,500 ML BOTTLE IR ONE (07:53)
[2020-10-08] MEDS ORDERED: WATER FOR IRRIG STERILE 1,500 ML BOTTLE IR ONE (07:54)
[2020-10-08] MEDS ORDERED: ceFAZolin/STERILE WATER 2 GM/20 ML SYRINGE IV ONE (07:54)
--- NOTE | 2020-10-08 08:20 | Progress Note ---
Spinal Anesthesia Block - Spinal Anesthesia Block Start Time: 07:44 Stop Time: 08:00 Performed by:: THO HERNANDEZ ([facility]) Procedure: Spinal anesthesia block is being performed for [C/S]. H&P, labs have been reviewed. Patient's questions and concerns have been answered. Informed consent has been performed. Timeout has was performed. Patient in sitting position on side of bed. Sterile prep and drape was performed. 3 mL 1% lidocaine skin wheal at L [3]-L [4]. Needle introducer advanced. 25-gauge spinal needle advanced, [+] CSF [-] blood. [Marcaine 10mg and Precedex 5mcg] Spinal dose was given. All needles removed. Patient tolerated procedure well.
--- NOTE | 2020-10-08 09:17 | Procedure Note ---
OB Delivery Note - Delivery Date of Delivery: 10/08/20 Estimated blood loss: other (700 cc) - Section Preop diagnosis: repeat Postop diagnosis: same section procedure: section, repeat low transverse Disposition: PACU Narrative: Indication: 29-year-old -0-1-1 at 39 weeks and 3 days is here for her scheduled repeat low-transverse . Findings: Normal uterus, tubes and ovaries. Clear fluid. No nuchal cord. No significant intra-abdominal scarring Procedure: Patient taken to the operating room and prepped and draped in the usual fashion. Pfannenstiel skin incision was made and carried down to the underlying fascia. Fascia was incised and the incision was extended bilaterally. Rectus fascia dissected off the rectus muscle both superiorly and inferiorly. Peritoneum identified tented up and entered. Peritoneal incision extended superiorly and inferiorly with good visualization of the bladder. Bladder blade was placed. Uterine incision was made and the incision was extended bilaterally. The baby was delivered in the typical vertex fashion. Baby bulb suctioned at the incision site and again after delivery. Cord was delayed clamped and cut and handed off to waiting team. The placenta was delivered spontaneously. The uterus was exteriorized and cleared of all clots and debris. Uterine incision closed with 0 Vicryl in a running locked fashion followed by a second imbricating layer of 0 Vicryl. Good hemostasis was noted. Her urine was clear. Uterus tubes and ovaries were returned to the abdominal cavity. Gutters were cleared of all clots and debris. Good hemostasis noted. Interceed placed over the uterine incision and over the lower uterine segment in the midline. Attention was turned to the rectus fascia which was reapproximated with 0 Vicryl in a running fashion. Subcutaneous tissue was irrigated and reapproximated with 2-0 Vicryl in a running fashion. Skin was closed with 4-0 Vicryl in a subcuticular fashion followed by Dermabond. The procedure was concluded at this point and the patient tolerated the procedure well. All instrument and lap counts were correct. - A at 1 minute: 8 at 5 minutes: 9 Gender: Female
[2020-10-08] MEDS ORDERED: WITCH HAZEL/ GLYCERIN PAD TP PRN (09:30)
[2020-10-08] MEDS ORDERED: LANOLIN/ZINC/DIMETHICONE (LANSINOH) 7 GM TP PRN (09:30)
--- NOTE | 2020-10-08 09:40 | Progress Note ---
Regional Anesthesia Block - Regional Anesthesia Block Start Time: 09:30 Stop Time: :40 Performed By:: THO HERNANDEZ ([facility]) Procedure: Patient consented for TAP block for post surgical pain management. Patient identified, monitors placed, and time out performed. Mid axillary TAP identified bilaterally via ultrasound. Skin prepped bilaterally with [chlorhexidine] and [20g stimuplex] needle advanced to the TAP. 35ml [Marcaine 0.215% with 25mcg Precedex and Decadron 5mg] injected under ultrasound guidance on the [left] side. 35ml [Marcaine 0.215% with 25mcg Precedex and Decadron 5mg] injected under ultrasound guidance on the [right] side. Negative aspiration every 5mL, Patient tolerated the procedure well. No apparent complications seen.
[2020-10-08] MEDS ORDERED: KETOROLAC 30 MG/1 ML INJ IV PRN (10:00)
[2020-10-08] MEDS ORDERED: MAGNESIUM HYDROXIDE (MOM) ORAL LIQD UDC PO PRN (10:00)
[2020-10-08] MEDS ORDERED: SIMETHICONE 80 MG CHEW TAB PO PRN (10:00)
[2020-10-08] MEDS: HYDROmorphone 1 MG/1 ML INJ IV PRN (15:14)
[2020-10-08] MEDS: oxyCODONE /ACETAMINOPHEN 5-325MG TAB PO PRN (21:59)
[2020-10-08] MEDS ORDERED: SENNOSIDES 8.6 MG TAB PO PRN (22:00)
[2020-10-09] MEDS: oxyCODONE /ACETAMINOPHEN 5-325MG TAB PO PRN ×3 (03:54→20:44)
[2020-10-09] MEDS: HYDROmorphone 1 MG/1 ML INJ IV PRN (04:02)
--- NOTE | 2020-10-09 04:48 | Progress Note ---
Assessment and Plan A: /postop day 1 S/P repeat LTCS. P: Encouraged patient to ambulate. Continue routine /postop care. Subjective - Subjective Date of service: 10/09/20 Principal diagnosis: /postop day 1 S/P repeat LTCS Patient reports: appetite normal, voiding normally, pain well controlled, flatus, ambulating normally, no dizzy ambulation, no nauseated : doing well, nursing well Objective - Vital Signs Latest vital signs: Vital Signs Temp Pulse Resp BP BP Pulse Ox 10/09/20 04:02 18 10/09/20 01:34 97.9 F 60 18 109/65 100 10/08/20 15:45 98.3 F 63 18 150/84 95 10/08/20 15:34 60 100 10/08/20 15:14 18 10/08/20 11:37 98.2 F 64 16 112/73 98 10/08/20 11:19 97.7 F 10/08/20 11:00 97.3 F L 10/08/20 10:45 97.4 F L 53 L 15 107/66 98 10/08/20 10:30 97.3 F L 63 17 105/63 98 10/08/20 10:15 96.4 F L 60 18 99/67 99 10/08/20 10:00 57 L 16 104/68 99 10/08/20 09:45 59 L 19 89/62 99 10/08/20 09:30 62 28 H 102/58 100 10/08/20 09:25 66 22 105/62 100 10/08/20 09:20 70 24 112/55 100 10/08/20 09:15 60 19 97/64 100 10/08/20 09:10 97.4 F L 67 17 103/55 100 10/08/20 06:18 98.2 F 90 18 10/08/20 06:17 87 98 10/08/20 06:12 88 99 10/08/20 06:07 82 99/66 97 Intake and Output 10/08/20 10/08/20 10/09/20 15:59 23:59 07:59 Intake Total 1620 360 Output Total 275 3000 900 Balance 1345 -2640 -900 Intake: IV 1500 Oral 120 360 Output: Urine 275 3000 900 Indwelling Catheter 0 1700 Uretheral ([place]) 900 Void 400 900 Other: Total, Intake Amount 120 360 Total, Output Amount 0 400 600 # Voids Void 1 1 Estimated Blood Loss 700 - Exam Cardiovascular: Present: Regular rate Lungs: Present: Clear to auscultation Abdomen: Present: normal appearance, soft, normal bowel sounds. Absent: distention, tenderness, guarding, rigidity Uterus: Present: normal, firm, fundal height below umbilicus. Absent: bogginess, tenderness Extremities: Absent: tenderness Incision: Present: dry, dressed - Labs Labs: Abnormal lab results 10/08/20 Range/Units 05:54 MCV 65 L (79-97) fl MCH 23 L (28-32) pg MCHC 35 H (30-34) % RDW 15.3 H (13.2-15.2) %
[2020-10-09 05:06] LABS: Hematocrit 31.2 % (30.3-42.9); Hemoglobin 10.6 gm/dl (10.1-14.3)
[2020-10-09] MEDS: IBUPROFEN 800 MG TAB PO PRN ×2 (15:30→23:13)
--- NOTE | 2020-10-09 15:44 | Post Anesthesia Evaluation ---
- Post Anesthesia Evaluation Patient Participated: Yes Airway Patent: Yes Stable Respiratory Function: Yes Nausea/Vomiting: No Temp > 96.8F: Yes Pain Manageable: Yes Adequeate Hydration: Yes Anesthesia Complications: No Block Receding Appropriately: Yes Patient on Ventilator: No
[2020-10-10] MEDS: oxyCODONE /ACETAMINOPHEN 5-325MG TAB PO PRN ×3 (00:24→09:31)
[2020-10-10] MEDS ORDERED: FERROUS SULFATE 325 MG TAB PO SCH (10:00)
--- NOTE | 2020-10-10 11:22 | Progress Note ---
Assessment and Plan A: day 2 S/P repeat LTCS. Anemia. P: Discharge patient home today. Discussed with patient /postop discharge instructions and warning signs. Advised patient to continue taking her vitamins and iron supplements at home. Advised patient re: care of incision and activity restrictions. Advised patient to avoid lifting, housework, driving, stair climbing, intercourse, and tub baths (patient may take showers). Advised patient to follow up at [facility] in 1 week. Patient voiced understanding of all instructions. Subjective - Subjective Date of service: 10/10/20 Principal diagnosis: /postop day 2 S/P repeat LTCS Interval history: /postop day 2 S/P repeat LTCS. Patient requests discharge home today. Doing well. No complaints. Patient reports: appetite normal, voiding normally, pain well controlled, flatus, ambulating normally, no dizzy ambulation, no nauseated : doing well Objective - Vital Signs Latest vital signs: Vital Signs Temp Pulse Resp BP BP Pulse Ox 10/10/20 05:39 16 10/10/20 00:24 20 10/10/20 00:00 98.0 F 63 18 122/63 97 10/09/20 20:44 18 10/09/20 16:00 98.3 F 91 H 18 110/72 95 Intake and Output 10/09/20 10/10/20 10/10/20 23:59 07:59 15:59 Intake Total 840 Balance 840 Intake: Oral 360 Intake, Free Water 480 Other: Total, Intake Amount 360 # Voids Void 2 - Exam Cardiovascular: Present: Regular rate Lungs: Present: Clear to auscultation Abdomen: Present: normal appearance, soft, normal bowel sounds. Absent: distention, tenderness, guarding, rigidity Uterus: Present: normal, firm, fundal height below umbilicus. Absent: bogginess, tenderness Extremities: Present: normal. Absent: tenderness Incision: Present: normal, dry, intact
--- NOTE | 2020-10-10 11:25 | Discharge Summary ---
Providers - Providers Date of Admission: 10/08/20 05:20 Date of discharge: 10/10/20 Attending physician: KEIRY MESA Primary care physician: KEIRY MESA Hospitalization Reason for admission: section Delivery: Procedure: repeat low transverse Incision: normal, dry, intact Other procedures: none complications: none Discharge diagnosis: IUP at term delivered baby: female Pertinent studies: Labs Hospital course: Stable hospital course Condition at discharge: Good Disposition: [id number] TO HOME OR SELFCARE - Discharge Diagnoses (1) Term delivered Status: Acute (2) Anemia Status: Acute Plan - Discharge Medications Prescriptions: Ibuprofen [Motrin 800 MG tab] 800 mg PO Q6H PRN #30 tablet PRN Reason: Pain, Mild (1-3) oxyCODONE /ACETAMINOPHEN [Percocet 5/325 mg] 1 tab PO Q6H PRN #30 tablet PRN Reason: Pain, Moderate (4-6) - Provider Discharge Summary Activity: routine, no sex for 6 weeks, no heavy lifting 4 weeks, no strenuous exercise Diet: routine Instructions: routine Additional instructions: Continue taking your vitamins and iron supplements at home. Follow up at [facility] in 1 week. Call your doctor immediately for: * Fever > 100.5 * Heavy vaginal bleeding ( >1 pad per hour) * Severe persistent headache * Shortness of breath * Reddened, hot, painful area to leg or breast * Drainage or odor from incision. * Keep incision clean and dry at all times and follow doctor's instructions regarding bathing/showering - Follow up plan Follow up: KEIRY MESA MD [Primary Care Provider] - 7 Days Forms: [facility] Discharge Summary
[2020-10-10 14:47] VITALS: BP 110/69
== END 2020-10-10 13:30 | disposition home or self-care (01) | DRG 766 ==
LOC: APU 05:20 → OB 11:39
PROVIDERS: ADMIT Obstetrics & Gynecology; ATTEND Obstetrics & Gynecology
PROC: 10D00Z1 Extraction of Products of Conception, Low, Open Approach (ICD-10-PCS; principal; 2020-10-08)
PROC: 3E0R3BZ Introduction of Anesthetic Agent into Spinal Canal, Percutaneous Approach (ICD-10-PCS; 2020-10-08)
DX: O34.211 Maternal care for low transverse scar from previous cesarean delivery (principal); O99.02 Anemia complicating childbirth; D64.9 Anemia, unspecified; Z37.0 Single live birth; Z3A.39 39 weeks gestation of pregnancy; Z20.822 Contact with and (suspected) exposure to COVID-19
CPT/HCPCS: 36415; 85014; 85018; 85027; 86592; 86850; 86900; 86901; G0378; A6250; J0690; J1100; J1170; J1885; J2405; J2765; J3490; J7120; U0003